=== PATIENT | female | born 1970 ===

== ENCOUNTER → 2019-07-31 | Day surgery (SDC) | payer OTHER ==
[~2019-07-31] MED LIST: CLONA PO; CODE1TAB37 PO; DRAMAMINE LESS25 MG PO; LIRICA PO; NAPR500T14 PO; SERTRALINE20 MG/1 ML PO; [UNRECOGNIZED DRUG - OTHER] PO
== END | disposition home or self-care (01) ==
LOC: ADM 07-24 11:30 → CIR.AMB 06:23
DX: N83.11 Corpus luteum cyst of right ovary (principal); N70.11 Chronic salpingitis; N84.0 Polyp of corpus uteri

== ENCOUNTER 2021-09-08 06:31 | Day surgery (SDC) | payer OTHER ==
[~2021-09-08 06:31] MED LIST changes: +CLONAZE PO; +GABAPENT PO; +[UNRECOGNIZED DRUG - OTHER] PO
== END 2021-09-08 16:00 | disposition home or self-care (01) ==
LOC: CIR.AMB 06:31
PROVIDERS: ATTEND Obstetrics & Gynecology
DX: R10.2 Pelvic and perineal pain (principal); Z20.822 Contact with and (suspected) exposure to COVID-19